=== PATIENT | male | born 2000 | race Two or more races ===

== ENCOUNTER 2024-06-26 16:59 | Emergency (ER) | payer SELFPAY ==
[~2024-06-26] VITALS: Ht 190.5 cm; Wt 81.6 kg
[2024-06-26] MEDS: IV NS 0.9% 1,000 ML BAG IV ONE (17:31)
[2024-06-26 17:33] LABS: BASOPHILS % (AUTO) 0.5 % (0.0-2.0); EOSINOPHILS # (AUTO) 0.1 K/uL (0.0-0.7); EOSINOPHILS % (AUTO) 0.9 % (0.0-6.0); HEMATOCRIT 39 % (39-51); HEMOGLOBIN 13.7 g/dL (13.5-17.5); LYMPHOCYTES # (AUTO) 1.6 K/uL (0.8-4.8); LYMPHOCYTES % (AUTO) 26.1 % (20.0-44.0); MEAN CORPUSCULAR HEMOGLOBIN 31 PG (26.0-33.0); MEAN CORPUSCULAR HGB CONC 36 g/dl (31.0-36.0); MEAN CORPUSCULAR VOLUME 87 fL (80-96); MONOCYTES # (AUTO) 0.6 K/uL (0.1-1.30); MONOCYTES % (AUTO) 9.1 % (2.0-12.0); NEUTROPHILS % (AUTO) 63.4 % (43.0-81.0); PLATELET COUNT (AUTO) 267 K/uL (150-450); RED BLOOD CELL COUNT(AUTO) 4.43 MIL/uL (4.5-6.0); RED CELL DISTRIBUTION WIDTH 12.6 % (11.5-15.0); WHITE BLOOD COUNT (AUTO) 6.3 K/uL (4.3-11.0)
[2024-06-26 17:39] LABS: CALCIUM, SERUM 9.1 mg/dL (8.5-10.1); CREATININE 1.1 mg/dL (0.6-1.3); POTASSIUM 3.6 mmol/L (3.5-5.1)
[2024-06-26 18:30] VITALS: BP 125/66; TEMP 98.1; O2SAT 100
== END 2024-06-26 18:38 | disposition home or self-care (01) ==
LOC: ER 17:12
DX: R42 Dizziness and giddiness (principal); R11.2 Nausea with vomiting, unspecified; R20.2 Paresthesia of skin
CPT/HCPCS: 99283; 96360; 85025; 80048; 36415; J7030